=== PATIENT | female | born 1995 | race African-American/Black ===

== ENCOUNTER 2020-04-19 18:23 | Emergency (ER) | payer MEDICAID, OTHER ==
[~2020-04-19] VITALS: Ht 165.1 cm; Wt 51.0 kg
[2020-04-19 20:11] LABS: BASOPHILS % 0.4 % (0.0-2.0); EOSINOPHILS % 0.2 % (0.0-5.0); HEMATOCRIT. 41.5 % (36.0-48.0); HEMOGLOBIN. 14.5 g/dL (12.0-16.0); LYMPHOCYTES % 31.1 % (20.0-50.0); MEAN CORPUSCULAR HEMOGLOBIN 30.6 pg (28.0-32.0); MEAN CORPUSCULAR VOLUME 87.6 fL (81.0-99.0); MEAN PLATELET VOLUME 7.8 fl (7.4-10.4); MONOCYTES % 5.8 % (2.0-8.0); NEUTROPHILS % 62.5 % (40.0-76.0); PLATELET 333 x1000/uL (130-400); RED BLOOD CELL COUNT 4.73 mill/uL (4.2-5.4); RED CELL DISTRIBUTION WIDTH 13.9 % (11.6-14.6)
[2020-04-19 20:15] LABS: CHLORIDE 103 mEq/L (98-107)
[2020-04-19 20:22] LABS: *BARBITURATES SCREEN URINE NEGATIVE (NEGATIVE); *BENZODIAZEPINES SCREEN URINE NEGATIVE (NEGATIVE); *COCAINE SCREEN URINE NEGATIVE (NEGATIVE)
[2020-04-19 20:23] LABS: *AMPHETAMINES SCREEN URINE PRESUMTIVE POSITIVE (NEGATIVE); CANNABINOID URINE SCREEN PRESUMTIVE POSITIVE (NEGATIVE); METHADONE URINE SCREEN NEGATIVE (NEGATIVE); OPIATES URINE SCREEN NEGATIVE (NEGATIVE); PHENCYCLIDINE URINE SCREEN NEGATIVE (NEGATIVE)
[2020-04-19] MEDS ORDERED: POTASSIUM CHLORIDE 20MEQ TABLET SR PO ONE (20:30)
[2020-04-19] MEDS ORDERED: HALOPERIDOL LACTATE 5MG/ML VIAL IM ONE ×2 (21:11→21:30)
[2020-04-19] MEDS ORDERED: LORAZEPAM 2MG/ML CPJ ONE (21:12)
[2020-04-19] MEDS ORDERED: LORAZEPAM 2MG/ML CPJ IM ONE (21:30)
[2020-04-19 23:13] LABS: HCG SCREEN NEGATIVE
[2020-04-20 11:28] VITALS: BP 113/60
== END 2020-04-20 11:30 | disposition home or self-care (01) ==
LOC: ER 18:23
DX: F23 Brief psychotic disorder (principal); F15.10 Other stimulant abuse, uncomplicated; F91.8 Other conduct disorders; F12.10 Cannabis abuse, uncomplicated; Z88.0 Allergy status to penicillin
CPT/HCPCS: 36415; 80053; 80305; 84443; 84703; 85025; 96372; 99285; J1630; J2060

== ENCOUNTER 2020-04-21 01:50 | Emergency (ER) | payer OTHER ==
[~2020-04-21] VITALS: Ht 160 cm; Wt 50.0 kg
[2020-04-21] MEDS ORDERED: SODIUM CHLORIDE 0.9% 500 ML IV ONE (02:00)
[2020-04-21 02:47] LABS: BASOPHILS % 0.3 % (0.0-2.0); EOSINOPHILS % 0.6 % (0.0-5.0); HEMOGLOBIN. 14.6 g/dL (12.0-16.0); LYMPHOCYTES % 25.5 % (20.0-50.0); MEAN CORPUSCULAR HEMOGLOBIN 30.5 pg (28.0-32.0); MEAN CORPUSCULAR VOLUME 87.3 fL (81.0-99.0); MEAN PLATELET VOLUME 7.8 fl (7.4-10.4); MONOCYTES % 4.9 % (2.0-8.0); NEUTROPHILS % 68.7 % (40.0-76.0); PLATELET 318 x1000/uL (130-400); RED BLOOD CELL COUNT 4.81 mill/uL (4.2-5.4); RED CELL DISTRIBUTION WIDTH 13.7 % (11.6-14.6)
[2020-04-21 02:52] LABS: CHLORIDE 105 mEq/L (98-107)
[2020-04-21 02:56] LABS: HCG SCREEN NEGATIVE
[2020-04-21 04:28] VITALS: BP 103/58
[2020-04-21 16:21] LABS: CLARITY URINE CLEAR (CLEAR); COLOR URINE YELLOW (YELLOW); KETONES URINE 1+ (NEGATIVE); LEUKOCYTE ESTERASE URINE TRACE (NEGATIVE); NITRITE URINE NEGATIVE (NEGATIVE); OCCULT BLOOD URINE NEGATIVE (NEGATIVE); PH URINE 6.5 (4.5-8.0); PROTEIN URINE NEGATIVE (NEGATIVE); SPECIFIC GRAVITY URINE 1.031 (1.005-1.030)
[2020-04-21 16:33] LABS: *AMPHETAMINES SCREEN URINE NEGATIVE (NEGATIVE); *BARBITURATES SCREEN URINE NEGATIVE (NEGATIVE); *BENZODIAZEPINES SCREEN URINE NEGATIVE (NEGATIVE); *COCAINE SCREEN URINE NEGATIVE (NEGATIVE); OPIATES URINE SCREEN NEGATIVE (NEGATIVE)
[2020-04-21 16:34] LABS: METHADONE URINE SCREEN NEGATIVE (NEGATIVE); PHENCYCLIDINE URINE SCREEN NEGATIVE (NEGATIVE)
[2020-04-21 16:38] LABS: CANNABINOID URINE SCREEN PRESUMTIVE POSITIVE (NEGATIVE)
== END 2020-04-21 04:29 | disposition home or self-care (01) ==
LOC: ER 02:10
DX: F41.9 Anxiety disorder, unspecified (principal); R10.9 Unspecified abdominal pain; I10 Essential (primary) hypertension; Z88.0 Allergy status to penicillin
CPT/HCPCS: 36415; 71045; 80053; 80305; 81003; 84484; 84703; 85025; 93005; 99285; J7040

== ENCOUNTER 2020-04-21 13:10 | Emergency (ER) | payer OTHER ==
[~2020-04-21] VITALS: Ht 162.6 cm; Wt 50.0 kg
[2020-04-21] MEDS ORDERED: FAMOTIDINE 20MG/2ML VIAL IV ONE (13:45)
[2020-04-21] MEDS ORDERED: DIPHENHYDRAMINE 50MG/ML VIAL IV ONE (13:45)
[2020-04-21] MEDS ORDERED: METHYLPREDNISOLONE SOD SUCC 125 MG/2 ML VIAL IV ONE (13:45)
[2020-04-21 15:00] VITALS: BP 110/67
== END 2020-04-21 15:51 | disposition home or self-care (01) ==
LOC: ER 13:10
DX: T78.2XXA Anaphylactic shock, unspecified, initial encounter (principal); E11.9 Type 2 diabetes mellitus without complications; I10 Essential (primary) hypertension; Z88.0 Allergy status to penicillin
CPT/HCPCS: 96374; 96375; 99284; J1200; J2930; J3490

== ENCOUNTER 2020-05-08 10:28 | Emergency (ER) | payer OTHER | END 2020-05-08 11:11 | disposition left against medical advice (07) | LOC: ER 10:28 | DX: Z53.21 Procedure and treatment not carried out due to patient leaving prior to being seen by health care provider (principal) ==

== ENCOUNTER 2020-11-05 14:53 | Emergency (ER) | payer OTHER ==
[~2020-11-05] VITALS: Ht 152.4 cm; Wt 46.0 kg
[2020-11-05 17:45] VITALS: BP 11/60
== END 2020-11-05 18:48 | disposition home or self-care (01) ==
LOC: ER 15:05
DX: R42 Dizziness and giddiness (principal); T40.7X5A Adverse effect of cannabis (derivatives), initial encounter; X58.XXXA Exposure to other specified factors, initial encounter; F17.290 Nicotine dependence, other tobacco product, uncomplicated; F14.10 Cocaine abuse, uncomplicated; F12.10 Cannabis abuse, uncomplicated; Z88.0 Allergy status to penicillin
CPT/HCPCS: 81025; 99283

== ENCOUNTER 2020-11-15 10:41 | Emergency (ER) | payer OTHER ==
[~2020-11-15] VITALS: Ht 152.4 cm; Wt 50.0 kg
[2020-11-15 11:34] LABS: CHLORIDE 108 mEq/L (98-107)
[2020-11-15 11:35] LABS: HCG SCREEN NEGATIVE
[2020-11-15 11:36] LABS: BASOPHILS % 0.4 % (0.0-2.0); EOSINOPHILS % 0.4 % (0.0-5.0); HEMATOCRIT. 38.9 % (36.0-48.0); HEMOGLOBIN. 13.2 g/dL (12.0-16.0); LYMPHOCYTES % 35.3 % (20.0-50.0); MEAN CORPUSCULAR HEMOGLOBIN 29.5 pg (28.0-32.0); MEAN CORPUSCULAR VOLUME 86.8 fL (81.0-99.0); MEAN PLATELET VOLUME 8.7 fl (7.4-10.4); MONOCYTES % 5.9 % (2.0-8.0); PLATELET 272 x1000/uL (130-400); RED BLOOD CELL COUNT 4.48 mill/uL (4.2-5.4); RED CELL DISTRIBUTION WIDTH 14.6 % (11.6-14.6)
[2020-11-15 11:39] LABS: ETHANOL BLOOD < 10 mg/dL
[2020-11-15 12:49] VITALS: BP 104/62
== END 2020-11-15 14:05 | disposition home or self-care (01) ==
LOC: ER 10:41
DX: F14.188 Cocaine abuse with other cocaine-induced disorder (principal); F12.188 Cannabis abuse with other cannabis-induced disorder; F10.10 Alcohol abuse, uncomplicated; Y90.0 Blood alcohol level of less than 20 mg/100 ml; R03.0 Elevated blood-pressure reading, without diagnosis of hypertension
CPT/HCPCS: 36415; 80053; 80320; 81025; 84703; 85025; 99283; Z7610; G0480

== ENCOUNTER 2020-11-17 12:58 | Emergency (ER) | payer OTHER ==
[~2020-11-17] VITALS: Ht 152.4 cm; Wt 64.0 kg
[2020-11-17] MEDS ORDERED: FAMOTIDINE 20MG/2ML VIAL IV STA (13:23)
[2020-11-17] MEDS ORDERED: METOCLOPRAMIDE HCL 10MG/2ML VIAL IV STA (13:23)
[2020-11-17] MEDS ORDERED: SODIUM CHLORIDE 0.9% 1,000 ML IV ONE (13:30)
[2020-11-17] MEDS ORDERED: KETOROLAC 15MG/ML VIAL IV ONE (14:45)
[2020-11-17 14:56] LABS: BASOPHILS % 0.4 % (0.0-2.0); EOSINOPHILS % 0.3 % (0.0-5.0); HEMATOCRIT. 38.8 % (36.0-48.0); HEMOGLOBIN. 13.1 g/dL (12.0-16.0); LYMPHOCYTES % 43.4 % (20.0-50.0); MEAN CORPUSCULAR HEMOGLOBIN 29.2 pg (28.0-32.0); MEAN CORPUSCULAR VOLUME 86.8 fL (81.0-99.0); MONOCYTES % 6.5 % (2.0-8.0); NEUTROPHILS % 49.4 % (40.0-76.0); RED BLOOD CELL COUNT 4.47 mill/uL (4.2-5.4); RED CELL DISTRIBUTION WIDTH 14.7 % (11.6-14.6)
[2020-11-17 14:58] LABS: CHLORIDE 109 mEq/L (98-107); MEAN PLATELET VOLUME 10.9 fl (7.4-10.4); PLATELET 184 x1000/uL (130-400)
[2020-11-17 15:01] LABS: INR 1.1; PROTHROMBIN TIME 11.4 sec (9.6-11.0)
[2020-11-17 15:03] LABS: ETHANOL BLOOD < 10 mg/dL
[2020-11-17 15:06] LABS: HCG SCREEN NEGATIVE
[2020-11-17 15:15] VITALS: BP 102/65
[2020-11-17] MEDS ORDERED: ONDA4TAB5 MT (15:29)
[2020-11-17] MEDS ORDERED: FAMO-135 MT (15:30)
== END 2020-11-17 16:16 | disposition home or self-care (01) ==
LOC: ER 12:58
DX: R10.84 Generalized abdominal pain (principal); R11.0 Nausea; F17.200 Nicotine dependence, unspecified, uncomplicated; F14.10 Cocaine abuse, uncomplicated; F12.10 Cannabis abuse, uncomplicated; E16.2 Hypoglycemia, unspecified; Z13.9 Encounter for screening, unspecified; Z88.0 Allergy status to penicillin; Z88.5 Allergy status to narcotic agent
CPT/HCPCS: 36415; 80053; 80320; 82962; 83690; 84703; 85025; 85610; 93005; 96361; 96374; 96375; 99284; J1885; J2765; J3490; J7030; Z7610; G0480

== ENCOUNTER 2020-11-17 22:01 | Emergency (ER) | payer OTHER ==
[~2020-11-17] VITALS: Ht 149.9 cm; Wt 42.0 kg
[~2020-11-17 22:01] MED LIST: FAMO-135 MT; ONDA4TAB5 MT
[2020-11-17 23:05] VITALS: BP 114/76
[2020-11-17] MEDS ORDERED: DICYCLOMINE 10 MG/5 ML ORAL SYR PO STA (23:47)
[2020-11-17] MEDS ORDERED: VISCOUS LIDOCAINE 2% 15 ML UDC PO STA (23:47)
[2020-11-17] MEDS ORDERED: MAGNESIUM/ALUMINUM HYDROXIDE/SIMETHICONE 30ML UDC PO STA (23:47)
== END 2020-11-18 00:35 | disposition left against medical advice (07) ==
LOC: ER 22:01
DX: R10.13 Epigastric pain (principal); R20.2 Paresthesia of skin; F41.9 Anxiety disorder, unspecified; F12.90 Cannabis use, unspecified, uncomplicated; F14.10 Cocaine abuse, uncomplicated
CPT/HCPCS: 93005; 99283

== ENCOUNTER 2020-12-24 17:31 | Emergency (ER) | payer OTHER ==
[~2020-12-24] VITALS: Ht 149.9 cm; Wt 52.0 kg
[2020-12-24 17:40] VITALS: BP 121/88
[2020-12-24] MEDS ORDERED: IBUP-2028 MT (18:55)
== END 2020-12-24 19:08 | disposition home or self-care (01) ==
LOC: ER 17:31
DX: T40.7X5A Adverse effect of cannabis (derivatives), initial encounter (principal); X58.XXXA Exposure to other specified factors, initial encounter; F41.9 Anxiety disorder, unspecified; F14.10 Cocaine abuse, uncomplicated; F12.10 Cannabis abuse, uncomplicated; Z88.0 Allergy status to penicillin; Z88.5 Allergy status to narcotic agent
CPT/HCPCS: 99281

== ENCOUNTER 2020-12-30 16:06 | Emergency (ER) | payer OTHER ==
[~2020-12-30] VITALS: Ht 149.9 cm; Wt 45.0 kg
[~2020-12-30 16:06] MED LIST changes: +IBUP-2028 MT
[2020-12-30 17:35] VITALS: BP 130/96
== END 2020-12-30 17:35 | disposition home or self-care (01) ==
LOC: ER 16:06
DX: F15.10 Other stimulant abuse, uncomplicated (principal); F41.9 Anxiety disorder, unspecified; F32.9 Major depressive disorder, single episode, unspecified; F43.10 Post-traumatic stress disorder, unspecified; F14.10 Cocaine abuse, uncomplicated; F12.10 Cannabis abuse, uncomplicated; Z88.5 Allergy status to narcotic agent; Z88.0 Allergy status to penicillin
CPT/HCPCS: 71045; 93005; 99283

== ENCOUNTER 2021-01-13 21:50 | Emergency (ER) | payer OTHER ==
[~2021-01-13] VITALS: Ht 152.4 cm; Wt 46.0 kg
[2021-01-13] MEDS ORDERED: LEVOTHYROXINE SODIUM 200MCG TABLET PO ONE (23:45)
[2021-01-14] MEDS ORDERED: LEVOTHYROXINE SODIUM 200MCG TABLET PO SCH
[2021-01-14 00:15] VITALS: BP 115/70
== END 2021-01-14 00:25 | disposition home or self-care (01) ==
LOC: ER 21:50
DX: F41.9 Anxiety disorder, unspecified (principal); T40.7X5A Adverse effect of cannabis (derivatives), initial encounter; R07.89 Other chest pain; R06.02 Shortness of breath; F14.10 Cocaine abuse, uncomplicated; F15.10 Other stimulant abuse, uncomplicated; F12.10 Cannabis abuse, uncomplicated; X58.XXXA Exposure to other specified factors, initial encounter; Z79.899 Other long term (current) drug therapy; Z88.0 Allergy status to penicillin; Z88.5 Allergy status to narcotic agent
CPT/HCPCS: 93005; 99283

== ENCOUNTER 2021-02-13 18:15 | Emergency (ER) | payer OTHER ==
[~2021-02-13] VITALS: Ht 152.4 cm; Wt 48.0 kg
[2021-02-13 18:16] VITALS: BP 142/90
== END 2021-02-13 22:01 | disposition left against medical advice (07) ==
LOC: ER 18:23
DX: M79.604 Pain in right leg (principal); M79.605 Pain in left leg; Z53.21 Procedure and treatment not carried out due to patient leaving prior to being seen by health care provider

== ENCOUNTER 2021-02-14 20:27 | Emergency (ER) | payer OTHER ==
[~2021-02-14] VITALS: Ht 162.6 cm; Wt 55.0 kg
[2021-02-14 20:28] VITALS: BP 132/80
== END 2021-02-14 23:33 | disposition home or self-care (01) ==
LOC: ER 20:27
DX: M54.2 Cervicalgia (principal); Z53.21 Procedure and treatment not carried out due to patient leaving prior to being seen by health care provider

== ENCOUNTER 2021-02-15 21:35 | Emergency (ER) | payer OTHER ==
[~2021-02-15] VITALS: Ht 157.5 cm; Wt 45.0 kg
[2021-02-16] MEDS ORDERED: MAGNESIUM/ALUMINUM HYDROXIDE/SIMETHICONE 30ML UDC PO STA (03:20)
[2021-02-16] MEDS ORDERED: DICYCLOMINE 10 MG/5 ML ORAL SYR PO STA (03:20)
[2021-02-16 03:55] LABS: BASOPHILS % 0.4 % (0.0-2.0); EOSINOPHILS % 0.2 % (0.0-5.0); HEMATOCRIT. 35.8 % (36.0-48.0); HEMOGLOBIN. 12.3 g/dL (12.0-16.0); LYMPHOCYTES % 11.1 % (20.0-50.0); MEAN CORPUSCULAR HEMOGLOBIN 29.8 pg (28.0-32.0); MEAN CORPUSCULAR VOLUME 86.7 fL (81.0-99.0); MEAN PLATELET VOLUME 8.4 fl (7.4-10.4); MONOCYTES % 5.1 % (2.0-8.0); NEUTROPHILS % 83.2 % (40.0-76.0); PLATELET 267 x1000/uL (130-400); RED BLOOD CELL COUNT 4.13 mill/uL (4.2-5.4); RED CELL DISTRIBUTION WIDTH 13.7 % (11.6-14.6)
[2021-02-16 04:04] LABS: CHLORIDE 107 mEq/L (98-107)
[2021-02-16 04:10] LABS: ETHANOL BLOOD < 10 mg/dL
[2021-02-16 04:30] LABS: CLARITY URINE CLEAR (CLEAR); COLOR URINE DARK YELLOW (YELLOW); KETONES URINE 4+ (NEGATIVE); LEUKOCYTE ESTERASE URINE 1+ (NEGATIVE); NITRITE URINE NEGATIVE (NEGATIVE); OCCULT BLOOD URINE NEGATIVE (NEGATIVE); PH URINE 6.5 (4.5-8.0); PROTEIN URINE TRACE (NEGATIVE); SPECIFIC GRAVITY URINE 1.034 (1.005-1.030)
[2021-02-16 04:39] LABS: *AMPHETAMINES SCREEN URINE NEGATIVE (NEGATIVE)
[2021-02-16 04:40] LABS: *BARBITURATES SCREEN URINE NEGATIVE (NEGATIVE); *BENZODIAZEPINES SCREEN URINE NEGATIVE (NEGATIVE); *COCAINE SCREEN URINE NEGATIVE (NEGATIVE); METHADONE URINE SCREEN NEGATIVE (NEGATIVE); OPIATES URINE SCREEN NEGATIVE (NEGATIVE); PHENCYCLIDINE URINE SCREEN NEGATIVE (NEGATIVE)
[2021-02-16 05:02] LABS: CANNABINOID URINE SCREEN PRESUMTIVE POSITIVE (NEGATIVE)
[2021-02-16] MEDS ORDERED: NITR-87 MT (06:21)
[2021-02-16 06:51] VITALS: BP 120/88
== END 2021-02-16 06:51 ==
LOC: ER 21:43
DX: R10.13 Epigastric pain (principal); F14.10 Cocaine abuse, uncomplicated; F15.10 Other stimulant abuse, uncomplicated; F12.10 Cannabis abuse, uncomplicated; E11.9 Type 2 diabetes mellitus without complications; Z88.5 Allergy status to narcotic agent; Z88.0 Allergy status to penicillin; Z98.890 Other specified postprocedural states
CPT/HCPCS: 36415; 74018; 80053; 80305; 80320; 81003; 81025; 85025; 99284; G0480

== ENCOUNTER 2021-07-05 20:25 | Emergency (ER) | payer OTHER ==
[~2021-07-05] VITALS: Ht 152.4 cm; Wt 46.0 kg
[~2021-07-05 20:25] MED LIST changes: +AMOX-494 MT; +IBUP-2029 MT; +NITR-87 MT
[2021-07-05] MEDS ORDERED: ACETAMINOPHEN 325MG TABLET PO STA (20:53)
[2021-07-05 21:32] LABS: CLARITY URINE CLEAR (CLEAR); COLOR URINE YELLOW (YELLOW); KETONES URINE 4+ (NEGATIVE); LEUKOCYTE ESTERASE URINE 1+ (NEGATIVE); NITRITE URINE NEGATIVE (NEGATIVE); OCCULT BLOOD URINE NEGATIVE (NEGATIVE); PH URINE 6.5 (4.5-8.0); PROTEIN URINE TRACE (NEGATIVE); SPECIFIC GRAVITY URINE 1.026 (1.005-1.030)
[2021-07-05] MEDS ORDERED: NITR-87 MT (22:08)
[2021-07-05 22:33] VITALS: BP 132/79
== END 2021-07-05 22:35 | disposition home or self-care (01) ==
LOC: ER 20:25
DX: N39.0 Urinary tract infection, site not specified (principal); Z20.822 Contact with and (suspected) exposure to COVID-19; R51.9 Headache, unspecified; R11.10 Vomiting, unspecified; R05.9 Cough, unspecified; R19.7 Diarrhea, unspecified; J34.89 Other specified disorders of nose and nasal sinuses; Z88.1 Allergy status to other antibiotic agents
CPT/HCPCS: 81003; 81025; 87804; 99283; C9803; U0003; U0005